=== PATIENT | female | born 1970 | race Caucasian/White ===

== ENCOUNTER 2017-01-19 13:01 | Emergency (ER) | payer OTHER ==
[2017-01-19] MEDS ORDERED: Aspirin 81 MG Tab.Chew PO ONE (13:04)
[2017-01-19] MEDS ORDERED: Aspirin 81 MG Tab.Chew ONE (13:05)
[2017-01-19 13:25] VITALS: BP 161/96
[2017-01-19] MEDS ORDERED: Alum Hydrox/Mag Hydrox/Simeth 15 ML, Lidocaine 2% 15 ML PO ONE ×2 (14:02)
--- NOTE | 2017-01-19 14:05 | CR ---
Heart size within normal limits. Pulmonary vasculature within normal limits. No focal consolidation. There are tiny nodules throughout the lung parenchyma. They appear calcified could be definitively confirmed with noncontrast chest CT or comparison to prior x-rays. Findings most suggestive of prior fungal infection such as histoplasmosis.
[2017-01-19] MEDS ORDERED: Famotidine 20 MG Tab PO ONE (14:36)
--- NOTE | 2017-01-19 14:44 | EDM.PDOC ---
ED HISTORY OF PRESENT ILLNESS - General Chief Complaint: Chest Pain Stated Complaint: CHEST PAIN Time Seen by Provider: 01/19/17 13:10 Source: Reports: Patient, Family History Limitations: Reports: No limitations - History of Present Illness INITIAL COMMENTS - FREE TEXT/NARRATIVE: pt had lasanga last nite S had donuts this am. Sh then developed pain in the mid chest which radiated to the jaw. By the time she got here she was just having a little snsation in her stomach. She had a stress test in Oct which looked ok except there was a very small artfactual area. Timing/Duration: Reports: Hour(s):, Improving, Other (pain has decreased markedly. ) Severity: moderate Location, General: Reports: chest Quality: Reports: Pressure, Other ( radiated to the nec or jaw area. ) Associated Symptoms: Reports: chest pain, other ( felt like a ball was stuck in her mid chest. ) - Related Data Allergies/ADRs: Allergies Allergy/AdvReac Type Severity Reaction Status Date / Time No Known Allergies Allergy Verified 01/19/17 13:15 Home Meds: Home Meds HCTZ/Triamterene [Maxzide 50-75 MG] 1 tab PO DAILY 11/07/16 [History] Past Medical History - Past Surgical History HEENT Surgical History: Reports: Tonsillectomy GI Surgical History: Reports: Cholecystectomy Social & Family History - Tobacco Use Smoking Status *Q: Current Every Day Smoker Years of Tobacco use: 30 Packs/Tins Daily: 1 ED ROS GENERAL - Review of Systems Review Of Systems: See Below Constitutional: Reports: no symptoms HEENT: Reports: No symptoms Respiratory: Reports: Shortness of Breath Cardiovascular: Reports: Chest pain Endocrine: Reports: no symptoms GI/Abdominal: Reports: Other (pt felt pressure in her stomach, some burning. ) : Reports: no symptoms Musculoskeletal: Reports: no symptoms Skin: Reports: no symptoms ED EXAM, GENERAL - Physical Exam Exam: See Below Free Text/Narrative:: pt had some donuts this am and developed a sensation like a ball was caught in her mid chest. This did radiate to her jaw. She had a stress test in Nov which showed a very tiny aretefact anteriorly She had a great ejection. She had no pain during there exercise. Exam Limited By: No limitations General Appearance: alert, anxious Ears: normal TMs Nose: normal inspection Throat/Mouth: Normal inspection Head: atraumatic Neck: normal inspection Respiratory/Chest: no respiratory distress Cardiovascular: regular rate, rhythm GI/Abdominal: soft, non tender Rectal (Female) Exam: Deferred Back Exam: normal inspection Extremities: normal inspection Neurological: alert, oriented Course - Vital Signs Last Recorded V/S: Last Vital Signs Temp 36.7 C 01/19/17 13:10 Pulse 84 01/19/17 13:10 Resp 16 01/19/17 13:10 BP 161/96 H 01/19/17 13:10 Pulse Ox 98 01/19/17 13:10 - Orders/Labs/Meds Labs: Laboratory Tests 01/19/17 01/19/17 01/19/17 Range/Units 13:16 13:16 13:16 WBC 9.3 (4.5-11.0) K/uL RBC 4.81 (3.30-5.50) M/uL Hgb 15.8 H (12.0-15.0) g/dL Hct 44.9 (36.0-48.0) % MCV 93 (80-98) fL MCH 33 H (27-31) pg MCHC 35 (32-36) % Plt Count 265 (150-400) K/uL Neut % (Auto) 44 (36-66) % Lymph % (Auto) 47 H (24-44) % [place] % (Auto) 8 H (2-6) % Eos % (Auto) 1 L (2-4) % Baso % (Auto) 1 (0-1) % Sodium 138 L (140-148) mmol/L Potassium 3.2 L (3.6-5.2) mmol/L Chloride 100 (100-108) mmol/L Carbon Dioxide 30 (21-32) mmol/L Anion Gap 11.2 (5.0-14.0) mmol/L BUN 11 (7-18) mg/dL Creatinine 0.7 (0.6-1.0) mg/dL Est Cr Clr Drug Dosing TNP Estimated GFR (MDRD) > 60 (>60) Glucose 94 (74-106) mg/dL Calcium 9.1 (8.5-10.1) mg/dL Total Bilirubin 0.7 (0.2-1.0) mg/dL AST 21 (15-37) U/L ALT 30 (12-78) U/L Alkaline Phosphatase 46 (46-116) U/L Creatine Kinase 76 (26-192) U/L Troponin I < 0.017 (0.000-0.056) ng/mL Total Protein 7.8 (6.4-8.2) g/dL Albumin 4.3 (3.4-5.0) g/dL Globulin 3.5 (2.3-3.5) g/dL Albumin/Globulin Ratio 1.2 (1.2-2.2) Meds: Medications Discontinued Medications Generic Name Dose Route Start Last Admin Trade Name Sonya PRN Reason Stop Dose Admin Aspirin Confirm 01/19/17 13:05 Aspirin Administered 01/19/17 13:06 Dose 324 mg .ROUTE .STK-MED ONE Aspirin 324 mg 01/19/17 13:04 01/19/17 13:06 Aspirin PO 01/19/17 13:05 324 mg ONETIME ONE Administration Al Hydroxide/Mg Hydroxide 15 0 ml 01/19/17 14:02 01/19/17 14:21 ml/ Lidocaine HCl 15 ml PO 01/19/17 14:03 30 ml ONETIME ONE Administration Famotidine 20 mg 01/19/17 14:36 01/19/17 15:43 Pepcid PO 01/19/17 14:37 Not Given ONETIME ONE - Re-Assessments/Exams Free Text/Narrative Re-Assessment/Exam: 01/19/17 15:29 a long discussion was held with the pt about the very sutle change on the Warner stress test and the symptoms today. She will be placed on pepcid and if she has further symptoms she needs to see cardiology. Her ekg and cardiac enzymes were normal today. She had an exercise cardiolyte that showed some st depression on the exercise portion. r There was some small change on the cardiolyte portion. If there are further symptoms she does need to see cardiology. 01/22/17 10:47 Departure - Departure Time of Disposition: 15:19 Disposition: Home, Self-Care 01 Condition: fair Clinical Impression: Gastric reflux, Tobacco abuse Instructions: Heartburn, [id number], Gastroparesis Referrals: PCP,None [Primary Care Provider] - Forms: ED Department Discharge Care Plan Goals: rtc if further synptoms, try to stop smoking, pepcid 20mg daily for 2 weeks, cont probiotic. If further symptoms pt needs to return and she needs a cardiology referal.
--- NOTE | 2017-01-23 11:27 | LETTER ---
01/23/2017 To: Parish Velazco [id number] [address] RE: [place] : 1970 Dear Parish: You recently were in our emergency room at which time you had developed chest pain. It is a kind of pain which radiated to your jaw and, as it turned out, we felt that this probably was some sort of reflux. The recommendation was for you to see Cardiology if you had any further symptomatology. The radiologist has taken a look at your chest x-ray and there are some tiny nodules throughout the lung parenchyma. These may have some extra calcium in them. Exactly what these are from is not for sure, and it is recommended at this time that we consider either getting old x-rays to compare, which I am not sure where you would have had any recent chest x-rays, or get a CAT scan of the chest. If you have questions regarding this, feel free to contact me. Sincerely, /[id number]
== END 2017-01-19 15:46 | disposition home or self-care (01) ==
LOC: JP.ED 13:01
DX: K21.9 Gastro-esophageal reflux disease without esophagitis (principal); F17.210 Nicotine dependence, cigarettes, uncomplicated; Z98.890 Other specified postprocedural states; Z90.49 Acquired absence of other specified parts of digestive tract
CPT/HCPCS: 36415; 71010; 80053; 82550; 84484; 85025; 93005; 99285; A9270

== ENCOUNTER 2018-01-17 06:31 | Day surgery (SDC) | payer OTHER ==
[2018-01-17] MEDS ORDERED: Sodium Chloride 0.9% 10 ML ONE (06:41)
[2018-01-17] MEDS ORDERED: Lactated Ringers 1,000 ML IV SCH (07:00)
[2018-01-17] MEDS: Lidocaine 1% with EPINEPHrine 1:100,000 50 ML MDV ONE ×2 (07:35→08:11)
[2018-01-17] MEDS: Sodium Tetradecyl Sulfate 1% 20 MG/2 ML SDV ONE ×2 (07:36→08:40)
[2018-01-17] MEDS ORDERED: Midazolam 1 MG/ML 2 ML SDV ONE (07:45)
[2018-01-17] MEDS ORDERED: Propofol 200 MG/20 ML SDV ONE ×2 (07:45→08:18)
[2018-01-17] MEDS ORDERED: fentaNYL 100 MCG/2 ML SDV ONE (07:45)
[2018-01-17] MEDS ORDERED: Lidocaine 1% 2 ML ONE (07:49)
[2018-01-17] MEDS ORDERED: Lidocaine 1% w/EPINEPHrine 50 ML, Sodium Bicarbonate 5 MEQ in Sodium Chloride 0.9% 950 ML INJECT ONE (08:00)
[2018-01-17] MEDS: Lidocaine 1% w/EPINEPHrine 50 ML, Sodium Bicarbonate 5 MEQ in Sodium Chloride 0.9% 950 ML INJECT ONE ×2 (08:21→08:30)
[2018-01-17] MEDS ORDERED: Ondansetron 4 MG/2 ML SDV ONE (09:24)
--- NOTE | 2018-01-17 09:44 | OR ---
DATE OF PROCEDURE: 01/17/2018 PROCEDURES: 1. Radiofrequency ablation of left greater saphenous vein. 2. Radiofrequency ablation of right greater saphenous vein. 3. Sclerotherapy, left leg, multiple. 4. Sclerotherapy, right leg, multiple. 5. Compression wrapping, two-stage, 20 mmHg, left ([id number]). 6. Compression wrapping, two-stage, right, 20 mmHg. RISKS: Risks, benefits, alternatives, and limitations including, but not limited to infection, bleeding, and DVT formation were explained to the patient. PREOPERATIVE DIAGNOSIS: Venous insufficiency with inflammation and pain. POSTOPERATIVE DIAGNOSIS: Venous insufficiency with inflammation and pain. ANESTHESIA: MAC/local. PROCEDURE IN DETAIL: The patient was placed in supine position. The left greater saphenous vein was accessed at the ankle and addressed first. This was executed by a 21-gauge needle, then exchanged for a 35,000th wire, then exchanged for a 7-Italian sheath. RFA probe was advanced to 3 cm from the saphenofemoral junction. Tumescent fluid was injected in 1 cm jacket around this, and this was verified a second and a third time. Direct even pressure was held as the probe was deployed x2 proximally and distally, and x1 in all other segments. Sheath and devices were then removed and direct pressure was held for 10 minutes and Dermabond was applied. The right leg was then performed in the same manner, same fashion, same technique, in the same sequence, and using the same equipment. This would be verified a second and a third time also. Sclerotherapy was then performed to the left and right legs using 0.33% sodium tetradecyl. This was always drawn back to ensure intravascular injection only and no more than 2 mL was injected in one location, 6 on the right and 7 on the left. Two-staged layered compression was performed of the left and right legs using a distal-to- proximal gradient of 20 mmHg. These were [id number] type fashion applications. The patient tolerated the procedure well. Vince Riojas MD /[id number]
[2018-01-17 10:03] VITALS: BP 135/79
== END 2018-01-17 10:00 | disposition home or self-care (01) ==
LOC: JP.SDS 06:31
PROVIDERS: ATTEND Surgery
DX: I87.2 Venous insufficiency (chronic) (peripheral) (principal); I10 Essential (primary) hypertension
CPT/HCPCS: 36415; 36471; 36475; 80048; 85027; 93005; J1642; J2250; J2704; J3010; J7040; J7050; J2405; J3490

== ENCOUNTER 2019-07-27 20:10 | Emergency (ER) | payer OTHER ==
[2019-07-27 20:41] VITALS: BP 163/90; PULSE 84
--- NOTE | 2019-07-27 21:07 | EDM.PDOC ---
ED HPI GENERAL MEDICAL PROBLEM - General Chief Complaint: Head Injury Stated Complaint: FELL/HIT HEAD Time Seen by Provider: 07/27/19 20:50 Source of Information: Reports: Patient, Family History Limitations: Reports: No Limitations - History of Present Illness INITIAL COMMENTS - FREE TEXT/NARRATIVE: 49-year-old female tripped within the last 2 hours hitting her left forehead on a door frame. She felt real shaky for the next 10-20 minutes but did not lose consciousness. She is now developing a small amount of neck stiffness and left shoulder discomfort but is thinking clearly, the pain in her scalp is decreasing and she has no neurologic deficits or nausea or vomiting. Onset: Sudden Duration: Hour(s): (within the last 2 hours) Location: Reports: Head Associated Symptoms: Reports: Weakness, Other (Tremor, resolved) Head Pain Score (Numeric/FACES): 1 - Related Data Allergies Allergy/AdvReac Type Severity Reaction Status Date / Time No Known Allergies Allergy Verified 07/27/19 20:31 Home Meds: Home Meds HCTZ/Triamterene [Maxzide 50-75 MG] 50 - 75 mg PO DAILY 11/07/16 [History] Losartan [Cozaar] 50 mg PO DAILY 07/27/19 [History] Past Medical History HEENT History: Reports: None Cardiovascular History: Reports: Hypertension Gastrointestinal History: Reports: Chronic Constipation, Chronic Diarrhea 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: Hematologic History: Reports: Anemia - Infectious Disease History Infectious Disease History: Reports: Chicken Pox - Past Surgical History HEENT Surgical History: Reports: Tonsillectomy Cardiovascular Surgical History: Reports: None GI Surgical History: Reports: Cholecystectomy Dermatological Surgical History: Reports: None Social & Family History - Tobacco Use Smoking Status *Q: Current Every Day Smoker Years of Tobacco use: 30 Packs/Tins Daily: 1 - Caffeine Use Caffeine Use: Reports: Coffee - Recreational Drug Use Recreational Drug Use: No ED ROS GENERAL - Review of Systems Review Of Systems: See Below Constitutional: Reports: Malaise. Denies: Fever, Chills HEENT: Denies: Vision Change Respiratory: Denies: Shortness of Breath Cardiovascular: Denies: Chest Pain GI/Abdominal: Denies: Abdominal Pain, Nausea, Vomiting Musculoskeletal: Reports: Neck Pain Neurological: Denies: Headache ED EXAM, HEAD INJURY - Physical Exam Exam: See Below Exam Limited By: No Limitations General Appearance: Alert, No Apparent Distress Head: Other (Some erythema on the left forehead, no significant bruising or hematoma) Eyes: Bilateral Eye: EOMI, PERRL Neck: Other (Slight paracervical muscle tenderness, no significant pain with range of motion) Respiratory: No Respiratory Distress Neurologic: No Motor/Sensory Deficits, Normal Mood/Affect, Oriented x 3, Other ( Romberg negative, no pronator drift) Course - Vital Signs Last Recorded V/S: Last Vital Signs Temp 98.5 F 07/27/19 20:41 Pulse 84 07/27/19 20:41 Resp 18 07/27/19 20:41 BP 163/90 H 07/27/19 20:41 Pulse Ox 95 07/27/19 20:41 - Re-Assessments/Exams Free Text/Narrative Re-Assessment/Exam: 07/27/19 21:06 Patient has a scalp contusion but I do not believe she has findings significant enough for a CT scan. She was reassured and if she develops worsening symptoms such as visual complaints, nausea or vomiting or increased headache she can return for reevaluation. Departure - Departure Time of Disposition: 21:22 Disposition: Home, Self-Care 01 Clinical Impression: Contusion of scalp Qualifiers: Encounter type: initial encounter Qualified Code(s): S00.03XA - Contusion of scalp, initial encounter - Discharge Information Instructions: Head Injury, Adult, [id number] Referrals: Chepe Poe MD [Primary Care Provider] - Forms: ED Department Discharge Care Plan Goals: Rest tonight, increase activity as tolerated and return if worsening such as nausea or vomiting, severe headache or unexplained weakness or numbness.
== END 2019-07-27 21:23 | disposition home or self-care (01) ==
LOC: JP.ED 20:10
DX: S00.03XA Contusion of scalp, initial encounter (principal); I10 Essential (primary) hypertension; F17.210 Nicotine dependence, cigarettes, uncomplicated; Z98.890 Other specified postprocedural states; Z90.49 Acquired absence of other specified parts of digestive tract; Z79.899 Other long term (current) drug therapy; W01.0XXA Fall on same level from slipping, tripping and stumbling without subsequent striking against object, initial encounter; W22.8XXA Striking against or struck by other objects, initial encounter
CPT/HCPCS: 99283

== ENCOUNTER 2021-02-17 17:04 | Emergency (ER) | payer OTHER ==
--- NOTE | 2021-02-17 17:26 | EDM.PDOC ---
ED HPI GENERAL MEDICAL PROBLEM - General Chief Complaint: Lower Extremity Injury/Pain Stated Complaint: POSSIBLE BROKEN LEFT LEG Time Seen by Provider: 02/17/21 17:22 Source of Information: Reports: Patient, RN Notes Reviewed History Limitations: Reports: No Limitations - History of Present Illness INITIAL COMMENTS - FREE TEXT/NARRATIVE: 50-year-old female presents emergency department day complaint of left ankle pain states that she injured herself when she missed the last step she is not sure of the exact mechanisms of injury difficult for her to bear weight, denies any other injury left Ankle Pain Score (Numeric/FACES): 5 - Related Data Allergies Allergy/AdvReac Type Severity Reaction Status Date / Time No Known Allergies Allergy Verified 02/17/21 17:14 Home Meds: Home Meds HCTZ/Triamterene [Maxzide 50-75 MG] 50 - 75 mg PO DAILY 11/07/16 [History] Losartan [Cozaar] 50 mg PO DAILY 07/27/19 [History] Past Medical History Cardiovascular History: Reports: Hypertension Gastrointestinal History: Reports: Chronic Constipation, Chronic Diarrhea 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: Endocrine/Metabolic History: Reports: Obesity/BMI 30+ Hematologic History: Reports: Anemia - Infectious Disease History Infectious Disease History: Reports: Chicken Pox - Past Surgical History HEENT Surgical History: Reports: Tonsillectomy Cardiovascular Surgical History: Reports: None GI Surgical History: Reports: Cholecystectomy Female Surgical History: Reports: Section Dermatological Surgical History: Reports: None Social & Family History - Tobacco Use Tobacco Use Status *Q: Current Every Day Tobacco User Years of Tobacco use: 30 Packs/Tins Daily: 1 - Caffeine Use Caffeine Use: Reports: Coffee, Soda - Recreational Drug Use Recreational Drug Use: No Review of Systems - Review of Systems Review Of Systems: See Below Musculoskeletal: Reports: Joint Pain ED EXAM, GENERAL - Physical Exam Exam: See Below Free Text/Narrative:: Examination of the left ankle I do not appreciate any erythema there is no edema she does have an abrasion to the dorsal aspect of the foot she will tolerate flexion and extension but does not tolerate any tilting of the ankle pedal pul ses +2 Exam Limited By: No Limitations General Appearance: Alert, WD/WN, No Apparent Distress Course - Vital Signs Last Recorded V/S: Last Vital Signs Temp 97.8 F 02/17/21 17:19 Pulse 92 02/17/21 17:23 Resp 18 02/17/21 17:23 BP 162/84 H 02/17/21 17:23 Pulse Ox 96 02/17/21 17:23 - Orders/Labs/Meds Orders: Active Orders 24 hr Category Date Time Status Ankle Min 3V Lt [CR] Stat Exams 02/17/21 17:24 Taken Departure - Departure Time of Disposition: 17:44 Disposition: Home, Self-Care 01 Condition: Fair Clinical Impression: Left ankle sprain Qualifiers: Encounter type: initial encounter Involved ligament of ankle: unspecified ligament Qualified Code(s): S93.402A - Sprain of unspecified ligament of left ankle, initial encounter - Discharge Information Instructions: Ankle Sprain, [id number] Referrals: Chepe Poe MD [Primary Care Provider] - Forms: ED Department Discharge Additional Instructions: Continue to use your cam walker and crutches for comfort Tylenol or Motrin as needed for pain control, please followup with your primary care provider in 3-5 days if not better, please call return to the emergency department with worsening of symptoms. Sepsis Event Note (ED) - Evaluation Sepsis Screening Result: No Definite Risk - Focused Exam Vital Signs: Vital Signs Temp Pulse Resp BP Pulse Ox 02/17/21 17:23 92 18 162/84 H 96 02/17/21 17:19 97.8 F 86 18 170/84 H 96 - My Orders Last 24 Hours: My Active Orders 02/17/21 17:24 Ankle Min 3V Lt [CR] Stat - Assessment/Plan Last 24 Hours: My Active Orders 02/17/21 17:24 Ankle Min 3V Lt [CR] Stat Plan: Assessment Acuity = acute Site and laterality = left ankle sprain Etiology = twisting injury Manifestations = none Location of injury = Home Lab values = left x-ray I did review films myself I cannot appreciate any acute process, the official read from radiology is pending Plan She is placed in a cam walker boot with crutches follow-up primary care 3 to 5 days if not better Tylenol Motrin as needed for pain control This note was dictated using [employer] voice recognition software please call with any questions on syntax or grammar.
[2021-02-17 17:54] VITALS: BP 162/84; PULSE 92
--- NOTE | 2021-02-21 09:21 | CR ---
Ankle Min 3V Lt CLINICAL HISTORY: Twisted, pain FINDINGS: The soft tissues are mildly swollen above the ankle. No acute fracture or dislocation is noted. Ankle mortise is intact. Articular surfaces are smooth. Impression: No fracture or dislocation
== END 2021-02-17 18:09 | disposition home or self-care (01) ==
LOC: JP.ED 17:04
DX: S93.402A Sprain of unspecified ligament of left ankle, initial encounter (principal); I10 Essential (primary) hypertension; E66.9 Obesity, unspecified; Z72.0 Tobacco use; Z68.31 Body mass index [BMI] 31.0-31.9, adult; Z79.899 Other long term (current) drug therapy; W10.9XXA Fall (on) (from) unspecified stairs and steps, initial encounter
CPT/HCPCS: 73610-26-LT; 73610-LT; 99283-25

== ENCOUNTER 2021-03-21 06:33 | Day surgery (SDC) | payer OTHER ==
[2021-03-21] MEDS ORDERED: fentaNYL 100 MCG/2 ML SDV ONE (07:17)
[2021-03-21] MEDS ORDERED: Propofol 200 MG/20 ML SDV ONE (07:17)
[2021-03-21] MEDS ORDERED: Midazolam 1 MG/ML 2 ML SDV ONE (07:18)
[2021-03-21] MEDS ORDERED: Sodium Chloride 0.9% 1,000 ML IV SCH (07:30)
[2021-03-21 11:00] VITALS: BP 154/81; PULSE 80
--- NOTE | 2021-03-21 13:21 | OR ---
DATE OF PROCEDURE: 03/21/2021 SURGEON: Vince Riojas MD PROCEDURE: Colonoscopy. FINDINGS: Normal colonoscopy. COMPLICATIONS: None. PHARMACY CUSTOMER CARE SPECIALIST: None. ANESTHETIC: MAC. PREOPERATIVE DIAGNOSIS: Diarrhea/constipation. POSTOPERATIVE DIAGNOSIS: Diarrhea/constipation. RISKS: Risks, benefits, alternatives, and limitations including, but not limited to, infection, bleeding, perforation, false positives, false negatives were explained to the patient, and they wished to proceed. PROCEDURE IN DETAIL: The patient was placed in left lateral decubitus position. Digital rectal exam was performed without abnormality. Scope was introduced and advanced atraumatically to the ileocecal valve. A photo was taken. The scope was brought back to the ascending, transverse, descending colon, and retroflexed. No evidence of old or new blood. No polyps. No diverticulosis. No etiology for diarrhea or constipation. No inflammation of the colon to suggest colitis or other inflammatory or irritable bowel syndromes. No abnormalities on retroflexion. The prep was acceptable as greater than 90% luminal surface could be seen. Greater than 8 minutes were spent removing the scope. No abnormalities on retroflexion. The patient tolerated the procedure well. Vince Riojas MD /[id number]
== END 2021-03-21 11:04 | disposition home or self-care (01) ==
LOC: JP.SDS 06:33
PROVIDERS: ATTEND Surgery
DX: R19.4 Change in bowel habit (principal); I10 Essential (primary) hypertension
CPT/HCPCS: J2250; J2704; J3010; J7030